=== PATIENT | male | born 1960 | race Caucasian/White ===

== ENCOUNTER 2020-09-27 04:25 | Day surgery (SDC) | payer OTHER ==
[2020-09-26 09:30] VITALS: BMI 31.6
[2020-09-27] MEDS ORDERED: MIDAZOLAM HCL 2 MG/2 ML SINGLE DOSE VIAL ONE ×3 (09:05→10:04)
[2020-09-27] MEDS ORDERED: PROPOFOL 20 ML ONE (09:05)
[2020-09-27 09:38] LABS: HEMATOCRIT 44.2 % (35.4-49); HEMOGLOBIN 15.2 GM/dL (11.7-16.9); MCH 32.3 pg (25.7-33.7); MCHC 34.5 g/dl (32.0-35.9); MEAN CELL VOLUME 93.5 fl (80-96); MEAN PLT VOLUME 8.3 fl (7.5-11.1); PLATELET COUNT 194 K/MM3 (134-434); RBC 4.73 M/mm3 (4.00-5.60); RDW 13.6 % (11.9-15.9); WHITE BLOOD COUNT 7.1 K/mm3 (4.0-10.0)
[2020-09-27 09:45] LABS: PH,URINE 5.5 (5.0-8.0); URINE APPEARANCE CLEAR; URINE BILIRUBIN NEGATIVE (NEGATIVE); URINE COLOR ORANGE; URINE GLUCOSE (UA) NEGATIVE (NEGATIVE); URINE KETONE TRACE (NEGATIVE); URINE LEUK ESTERASE NEGATIVE (NEGATIVE); URINE NITRITE NEGATIVE (NEGATIVE); URINE PROTEIN TRACE (NEGATIVE); URINE UROBILINOGEN 0.2 mg/dL (0.2-1.0)
[2020-09-27 09:58] LABS: CALCIUM 9.4 mg/dL (8.5-10.1)
[2020-09-27 09:59] LABS: ALBUMIN 3.5 g/dl (3.4-5.0); BLOOD UREA NITROGEN 8.8 mg/dL (7-18)
[2020-09-27 10:01] LABS: CREATININE 0.9 mg/dL (0.55-1.3)
[2020-09-27 10:02] LABS: BILIRUBIN,TOTAL 0.9 mg/dL (0.2-1); TOT PROT 7.8 g/dl (6.4-8.2)
[2020-09-27 10:03] LABS: INR 1.14 (0.83-1.09)
[2020-09-27 10:06] LABS: ACTIVATED PTT 32.8 SECONDS (25.2-36.5)
[2020-09-27] MEDS ORDERED: LIDOCAINE HCL 1%, 10 MG/ML (20ML VIAL) ONE (10:44)
[2020-09-27] MEDS ORDERED: ONDANSETRON 4 MG/2 ML VIAL IVPUSH PRN (11:55)
[2020-09-27] MEDS ORDERED: oxyCODONE HCL 5 MG TABLET PO PRN (11:55)
[2020-09-27] MEDS ORDERED: PROMETHAZINE HCL 25 MG/1 ML VIAL IVPUSH PRN (11:55)
[2020-09-27] MEDS ORDERED: LACTATED RINGERS SOLUTION 1,000 ML IV SCH (12:00)
[2020-09-27 16:43] VITALS: TEMP 97.7
[2020-09-27 16:53] VITALS: BP 142/90; PULSE 96
== END 2020-09-27 15:20 | disposition home or self-care (01) ==
LOC: JASU-SURG 04:25
PROVIDERS: ATTEND Orthopaedic Surgery
PROC: 0SBF4ZZ Excision of Right Ankle Joint, Percutaneous Endoscopic Approach (ICD-10-PCS; principal; 2020-09-27 10:30)
DX: M24.871 Other specific joint derangements of right ankle, not elsewhere classified (principal)
CPT/HCPCS: 36415; 80053; 81003; 85027; 85610; 85730; 94760